=== PATIENT | male | born 1985 | race Caucasian/White ===

== ENCOUNTER 2018-10-27 16:40 | Emergency (ER) | payer OTHER, MEDICAID | END 2018-10-27 18:34 | disposition home or self-care (01) | LOC: FTE 16:40 | DX: L03.119 Cellulitis of unspecified part of limb (principal); J45.909 Unspecified asthma, uncomplicated; F17.210 Nicotine dependence, cigarettes, uncomplicated | CPT/HCPCS: 99283; Z7502 ==